=== PATIENT | female | born 1955 | race Caucasian/White ===

== ENCOUNTER 2019-07-17 06:21 | Inpatient (IN) | payer BC ==
[~2019-07-17] VITALS: Ht 162.6 cm; Wt 63.5 kg
[2019-07-17] MEDS ORDERED: PIPERACILLIN/TAZ 3.375G PREMIX 50 ML IV ONE (06:30)
[2019-07-17] MEDS ORDERED: VANCOMYCIN 1 G PREMIX 200 ML IV ONE (06:30)
[2019-07-17] MEDS ORDERED: SODIUM CHLORIDE 0.9% 1000ML BAG (SEPSIS BOLUS) IV ONE (06:30)
[2019-07-17 07:14] LABS: BASOPHILS % 0.3 % (0.0-2.0); EOSINOPHILS % 0.1 % (0.0-5.0); HEMATOCRIT. 35.1 % (36.0-48.0); HEMOGLOBIN. 11.7 g/dL (12.0-16.0); LYMPHOCYTES % 10.9 % (20.0-50.0); MEAN CORPUSCULAR HEMOGLOBIN 29.1 pg (28.0-32.0); MEAN CORPUSCULAR VOLUME 87.1 fL (81.0-99.0); MEAN PLATELET VOLUME 10.7 fl (7.4-10.4); MONOCYTES % 8.2 % (2.0-8.0); NEUTROPHILS % 80.5 % (40.0-76.0); PLATELET 97 x1000/uL (130-400); RED BLOOD CELL COUNT 4.04 mill/uL (4.2-5.4); RED CELL DISTRIBUTION WIDTH 14.4 % (11.6-14.6)
[2019-07-17 07:16] LABS: INR 1.1; PROTHROMBIN TIME 10.8 sec (9.6-11.0)
[2019-07-17 07:18] LABS: CHLORIDE 106 mEq/L (98-107)
[2019-07-17 08:18] LABS: CLARITY URINE CLOUDY (CLEAR); COLOR URINE DARK YELLOW (YELLOW); KETONES URINE TRACE (NEGATIVE); LEUKOCYTE ESTERASE URINE NEGATIVE (NEGATIVE); NITRITE URINE NEGATIVE (NEGATIVE); OCCULT BLOOD URINE NEGATIVE (NEGATIVE); PROTEIN URINE 1+ (NEGATIVE); SPECIFIC GRAVITY URINE 1.018 (1.005-1.030); UROBILINOGEN URINE 0.2 E.U./dL (0.2-1.0)
[2019-07-17] MEDS ORDERED: ONDANSETRON HCL 4MG/2ML INJ IV STA (08:18)
[2019-07-17] MEDS ORDERED: NOREPINEPHRINE 4MG/250ML PMX 250 ML IV ONE (10:00)
[2019-07-17] MEDS ORDERED: HYDROCORTISONE SOD SUCCINATE 100 MG/2 ML VIAL IV ONE (11:45)
[2019-07-17] MEDS ORDERED: DOCUSATE SODIUM 100MG CAPSULE PO PRN (16:15)
[2019-07-17] MEDS ORDERED: ONDANSETRON HCL 4MG/2ML INJ IV PRN (16:15)
[2019-07-17] MEDS ORDERED: CLONIDINE 0.1MG TABLET PO PRN (16:15)
[2019-07-17] MEDS ORDERED: ACETAMINOPHEN 325MG TABLET PO PRN (16:15)
[2019-07-17] MEDS ORDERED: IPRATROPIUM/ALBUTEROL 0.5-3(2.5)MG/3ML NEB HHN PRN (16:15)
[2019-07-17] MEDS ORDERED: LORAZEPAM 0.5MG TABLET PO PRN (16:15)
[2019-07-17] MEDS ORDERED: GUAIFENESIN 200MG/10ML SUGAR FREE UDC PO PRN (16:15)
[2019-07-17 17:28] LABS: HEPATITIS B SURFACE ANTIGEN NEGATIVE
[2019-07-17] MEDS ORDERED: HYDROMORPHONE HCL/PF 2MG/ML CPJ IV NR ×2 (17:30→21:15)
[2019-07-17] MEDS: SODIUM CHLORIDE 0.9% 1,000 ML IV SCH (17:30)
[2019-07-17 17:58] LABS: HEPATITIS A AB IGM NEGATIVE (NEGATIVE)
[2019-07-17] MEDS: HYDROMORPHONE HCL/PF 2MG/ML CPJ IV PRN ×2 (23:45→23:49)
[2019-07-18] VITALS (77 sets, daily range): BP systolic 81–145; BP diastolic 35–91
[2019-07-18] MEDS ORDERED: NOREPINEPHRINE 4 MG in DEXT 5% WATER 246 ML IV PRN (01:00)
[2019-07-18] MEDS: SODIUM CHLORIDE 0.9% 1,000 ML IV SCH ×2 (01:43→11:31)
[2019-07-18] MEDS: HYDROMORPHONE HCL/PF 2MG/ML CPJ IV PRN ×2 (01:58→06:43)
[2019-07-18] MEDS ORDERED: LABE100T5 PO (03:55)
[2019-07-18] MEDS ORDERED: LEVO50TA8 PO (03:55)
[2019-07-18] MEDS ORDERED: AMIT25TA9 PO (03:55)
[2019-07-18] MEDS ORDERED: PRED5TAB PO (03:55)
[2019-07-18] MEDS ORDERED: VALG450T3 PO (03:55)
[2019-07-18] MEDS ORDERED: FLUC200T51 PO (03:55)
[2019-07-18] MEDS ORDERED: ENOX60DI7 SQ (03:55)
[2019-07-18] MEDS ORDERED: MORP30TA66 PO (03:55)
[2019-07-18] MEDS ORDERED: AMLO1CAP6 MT (03:56)
[2019-07-18 05:48] LABS: BASOPHILS % 0.3 % (0.0-2.0); EOSINOPHILS % 0.8 % (0.0-5.0); HEMATOCRIT. 25.2 % (36.0-48.0); HEMOGLOBIN. 8.3 g/dL (12.0-16.0); MEAN CORPUSCULAR HEMOGLOBIN 29.1 pg (28.0-32.0); MEAN PLATELET VOLUME 9.4 fl (7.4-10.4); MONOCYTES % 10.7 % (2.0-8.0); NEUTROPHILS % 75.2 % (40.0-76.0); RED BLOOD CELL COUNT 2.87 mill/uL (4.2-5.4); RED CELL DISTRIBUTION WIDTH 14.4 % (11.6-14.6)
[2019-07-18 06:11] LABS: PHOSPHORUS 2.8 mg/dL (2.5-4.9)
[2019-07-18 06:29] LABS: PLATELET 46 x1000/uL (130-400)
[2019-07-18 08:35] LABS: PLATELET ESTIMATE DECREASED
[2019-07-18] MEDS: PREDNISONE 5MG TABLET PO SCH (10:01)
[2019-07-18] MEDS: MORPHINE SULFATE 30MG TABLET SR PO SCH ×2 (10:01→20:44)
[2019-07-18] MEDS: LEVOTHYROXINE SODIUM 50MCG TABLET PO SCH (10:01)
[2019-07-18] MEDS: LABETALOL HCL 200MG TABLET PO SCH (10:02)
[2019-07-18] MEDS: HYDROCODONE/ACETAMINOPHEN 5/325MG TABLET PO PRN ×2 (11:32→16:22)
[2019-07-18] MEDS ORDERED: FLUCONAZOLE 400MG/200ML BAG 200 ML IV SCH (17:00)
[2019-07-18] MEDS: VALGANCICLOVIR HYDROCHLORIDE 450MG TABLET PO SCH (17:37)
[2019-07-18] MEDS ORDERED: AMITRIPTYLINE 25MG TABLET PO SCH (21:00)
[2019-07-19] VITALS (9 sets, daily range): BP systolic 104–156; BP diastolic 36–86
[2019-07-19] MEDS: SODIUM CHLORIDE 0.9% 1,000 ML IV SCH ×2 (02:30→08:27)
[2019-07-19 05:10] LABS: HIV SCREEN 4G Non Reactive (Non Reactive)
[2019-07-19 07:46] LABS: BASOPHILS % 0.3 % (0.0-2.0); EOSINOPHILS % 0.7 % (0.0-5.0); HEMOGLOBIN. 8.3 g/dL (12.0-16.0); LYMPHOCYTES % 10.2 % (20.0-50.0); MEAN CORPUSCULAR HEMOGLOBIN 29.1 pg (28.0-32.0); MEAN CORPUSCULAR VOLUME 88.2 fL (81.0-99.0); MEAN PLATELET VOLUME 9.9 fl (7.4-10.4); NEUTROPHILS % 80.8 % (40.0-76.0); RED BLOOD CELL COUNT 2.84 mill/uL (4.2-5.4); RED CELL DISTRIBUTION WIDTH 14.3 % (11.6-14.6)
[2019-07-19 08:02] LABS: PLATELET 42 x1000/uL (130-400)
[2019-07-19] MEDS: LEVOTHYROXINE SODIUM 50MCG TABLET PO SCH (08:24)
[2019-07-19] MEDS: VALGANCICLOVIR HYDROCHLORIDE 450MG TABLET PO SCH (08:24)
[2019-07-19] MEDS: PREDNISONE 5MG TABLET PO SCH (08:24)
[2019-07-19] MEDS: MORPHINE SULFATE 30MG TABLET SR PO SCH (08:25)
[2019-07-19] MEDS: LABETALOL HCL 200MG TABLET PO SCH (10:26)
== END 2019-07-19 17:15 | disposition home or self-care (01) | DRG 871 ==
LOC: ER 06:21 → EDBEDREQTM 06:34 → EDBEDREQSVC 06:34 → EDBEDREQ 06:34 → MICUSO 09:49 → EDBEDREQ 09:56 → EDBEDREQSVC 09:56 → EDBEDREQTM 19:34 → ENRESERV 23:32 → 5EST 07-18 21:40
PROVIDERS: ADMIT Internal Medicine; ATTEND Internal Medicine
DX: A41.9 Sepsis, unspecified organism (principal); R65.21 Severe sepsis with septic shock; N17.0 Acute kidney failure with tubular necrosis; G92 Toxic encephalopathy; E44.0 Moderate protein-calorie malnutrition; D61.818 Other pancytopenia; E87.2 Acidosis; B01.9 Varicella without complication; B25.9 Cytomegaloviral disease, unspecified; K56.7 Ileus, unspecified; E03.9 Hypothyroidism, unspecified; G93.89 Other specified disorders of brain; D64.9 Anemia, unspecified; D72.821 Monocytosis (symptomatic); N18.9 Chronic kidney disease, unspecified; M32.14 Glomerular disease in systemic lupus erythematosus; R80.9 Proteinuria, unspecified; G62.9 Polyneuropathy, unspecified; R74.0 Nonspecific elevation of levels of transaminase and lactic acid dehydrogenase [LDH]; K52.9 Noninfective gastroenteritis and colitis, unspecified; Z79.52 Long term (current) use of systemic steroids; Z86.73 Personal history of transient ischemic attack (TIA), and cerebral infarction without residual deficits; Z68.24 Body mass index [BMI] 24.0-24.9, adult
CPT/HCPCS: 36415; 36556; 71045; 74176; 80048; 80053; 80076; 81003; 82270; 82728; 83540; 83550; 83605; 83735; 84100; 84145; 84484; 85025; 85049; 86705; 86709; 86803; 87015; 87045; 87340; 87389; 87427; 87449; 87493; 87899; 89055; 93005; 99291; J1170; J1450; J1720; J2405; J2543; J3370; J3490; J7030; J7512

== ENCOUNTER 2020-02-11 14:10 | Inpatient (IN) | payer BC ==
[~2020-02-11] VITALS: Ht 160 cm; Wt 63.0 kg
[~2020-02-11 14:10] MED LIST: AMIT25TA9 PO; AMLO1CAP6 MT; ENOX60DI7 SQ; FLUC200T51 PO; LABE100T5 PO; LEVO50TA8 PO; MORP30TA66 PO; PRED5TAB PO; VALG450T3 PO
[2020-02-11] MEDS ORDERED: SODIUM CHLORIDE 0.9% 1000ML BAG (SEPSIS BOLUS) IV ONE (14:15)
[2020-02-11] MEDS ORDERED: VANCOMYCIN 1 G PREMIX 200 ML IV SCH (14:30)
[2020-02-11] MEDS ORDERED: HYDROCORTISONE SOD SUCCINATE 100 MG/2 ML VIAL IV ONE (14:30)
[2020-02-11] MEDS ORDERED: PIPERACILLIN/TAZ 2.25G PREMIX 50 ML IV ONE (14:30)
[2020-02-11 14:42] LABS: BASOPHILS % 0.2 % (0.0-2.0); EOSINOPHILS % 0.2 % (0.0-5.0); HEMATOCRIT. 43.8 % (36.0-48.0); HEMOGLOBIN. 14.5 g/dL (12.0-16.0); LYMPHOCYTES % 22.7 % (20.0-50.0); MEAN CORPUSCULAR HEMOGLOBIN 29.9 pg (28.0-32.0); MEAN CORPUSCULAR VOLUME 90.4 fL (81.0-99.0); MEAN PLATELET VOLUME 9.1 fl (7.4-10.4); MONOCYTES % 6.7 % (2.0-8.0); NEUTROPHILS % 70.2 % (40.0-76.0); PLATELET 110 x1000/uL (130-400); RED BLOOD CELL COUNT 4.85 mill/uL (4.2-5.4); RED CELL DISTRIBUTION WIDTH 14.6 % (11.6-14.6)
[2020-02-11 14:48] LABS: CHLORIDE 102 mEq/L (98-107)
[2020-02-11 14:49] LABS: COLOR URINE YELLOW (YELLOW); KETONES URINE TRACE (NEGATIVE); LEUKOCYTE ESTERASE URINE NEGATIVE (NEGATIVE); NITRITE URINE NEGATIVE (NEGATIVE); OCCULT BLOOD URINE NEGATIVE (NEGATIVE); PROTEIN URINE 1+ (NEGATIVE); SPECIFIC GRAVITY URINE 1.023 (1.005-1.030); UROBILINOGEN URINE 0.2 E.U./dL (0.2-1.0)
[2020-02-11 14:51] LABS: INR 1.1; PROTHROMBIN TIME 11.6 sec (9.6-11.0)
[2020-02-11 14:53] LABS: CLARITY URINE SL HAZY (CLEAR)
[2020-02-11 14:58] LABS: CREATINE KINASE 80 IU/L (26-192)
[2020-02-11 15:05] LABS: BG BASE EXCESS -1.3 mmol/L (-2.0-2.0); BG CARBOXYHEMOGLOBIN 0.7 % (0.5-1.5); BG DEOXYHEMOGLOBIN 8.7 % (0.0-5.0); BG FRACTION INSPIRED OXYGEN 21; BG HCO3 ACT 22.7 mmol/L (22.0-26.0); BG METHEMOGLOBIN 0.3 % (0.0-1.5); BG OXYGEN SATURATION 91.2 % (92.0-98.5); BG OXYHEMOGLOBIN 90.3 % (94.0-97.0); BG PCO2 36.2 mmHg (35.0-45.0); BG PH 7.416 (7.350-7.450); BG PO2 62.6 mmHg (75.0-100.0); BG SAMPLE SITE RIGHT RADIAL; BG TOTAL HEMOGLOBIN 13.2 g/dL (12.0-18.0); BG VENT MODE ROOM AIR
[2020-02-11 15:23] LABS: HCG SCREEN NEGATIVE
[2020-02-11] MEDS ORDERED: NOREPINEPHRINE 4 MG in DEXT 5% WATER 246 ML IV ONE (16:30)
[2020-02-11] MEDS ORDERED: NOREPINEPHRINE 4MG/250ML PMX 250 ML IV ONE (17:00)
[2020-02-11] MEDS ORDERED: ACETAMINOPHEN 650MG SUPP ONE (20:09)
[2020-02-11] MEDS ORDERED: ONDANSETRON HCL 4MG/2ML INJ IV PRN (20:30)
[2020-02-11] MEDS ORDERED: ACETAMINOPHEN 650MG/20.3ML UDC GT PRN ×2 (20:30)
[2020-02-11] MEDS ORDERED: NOREPINEPHRINE 4 MG in DEXT 5% WATER 246 ML IV PRN ×2 (20:30→22:45)
[2020-02-11] MEDS ORDERED: METHYLPREDNISOLONE SOD SUCC 40 MG/ML VIAL IV NR (21:00)
[2020-02-11] MEDS ORDERED: LEVOFLOXACIN 500MG PREMIX 100 ML IV SCH (21:00)
[2020-02-11] MEDS ORDERED: SODIUM CHLORIDE 0.9% 500 ML IV ONE (21:00)
[2020-02-11] MEDS: SODIUM CHLORIDE 0.9% 1,000 ML IV SCH (21:10)
[2020-02-11] MEDS: FAMOTIDINE 20MG/2ML VIAL IV SCH (21:46)
[2020-02-11] MEDS ORDERED: FLUCONAZOLE 200 MG/100ML BAG 100 ML IV SCH (22:00)
[2020-02-12] VITALS (77 sets, daily range): BP systolic 55–153; BP diastolic 19–102
[2020-02-12] MEDS ORDERED: NOREPINEPHRINE 16 MG in DEXT 5% WATER 234 ML IV PRN (03:00)
[2020-02-12] MEDS: ACETAMINOPHEN 325MG TABLET PO PRN (03:45)
[2020-02-12] MEDS: SODIUM CHLORIDE 0.9% 1,000 ML IV SCH ×4 (03:46→22:55)
[2020-02-12] MEDS: HYDROCODONE/APAP 7.5/325MG 1 TAB TABLET PO PRN ×2 (06:06→10:27)
[2020-02-12 06:09] LABS: HEMATOCRIT. 35.6 % (36.0-48.0); MEAN CORPUSCULAR HEMOGLOBIN 29.9 pg (28.0-32.0); MEAN CORPUSCULAR VOLUME 89.1 fL (81.0-99.0); MEAN PLATELET VOLUME 8.8 fl (7.4-10.4); PLATELET 94 x1000/uL (130-400); RED BLOOD CELL COUNT 3.99 mill/uL (4.2-5.4); RED CELL DISTRIBUTION WIDTH 13.9 % (11.6-14.6)
[2020-02-12 06:10] LABS: CHLORIDE 111 mEq/L (98-107)
[2020-02-12 06:15] LABS: PHOSPHORUS 3.5 mg/dL (2.5-4.9)
[2020-02-12] MEDS: FAMOTIDINE 20MG/2ML VIAL IV SCH (06:57)
[2020-02-12 10:26] LABS: PLATELET ESTIMATE DECREASED
[2020-02-12] MEDS: AZITHROMYCIN 500 MG TABLET PO SCH (15:35)
[2020-02-12] MEDS ORDERED: HYDROCORTISONE SOD SUCCINATE 100 MG/2 ML VIAL IV NR (16:00)
[2020-02-12] MEDS ORDERED: MAGNESIUM 2 G PREMIX 50 ML IV SCH (16:00)
[2020-02-12] MEDS ORDERED: HYDR-3847 PO (16:59)
[2020-02-12] MEDS ORDERED: MYCO360T PO (16:59)
[2020-02-12] MEDS: CEFTRIAXONE 1,000 MG in DEXTROSE 5% WATER 50 ML IV SCH (17:27)
[2020-02-12] MEDS: METRONIDAZOLE 500 MG PREMIX 100 ML IV SCH (17:27)
[2020-02-12] MEDS: ENOXAPARIN 60MG/0.6ML SYR SUBCUT SCH (17:32)
[2020-02-12] MEDS ORDERED: LEVOFLOXACIN 250MG PREMIX 50 ML IV SCH (21:00)
[2020-02-12] MEDS: MORPHINE SULFATE 2 MG/ML CPJ (NOT FOR IM USE) IV PRN (21:26)
[2020-02-12] MEDS: FLUCONAZOLE 200 MG/100ML BAG 100 ML IV SCH (22:55)
[2020-02-13] VITALS (14 sets, daily range): BP systolic 114–152; BP diastolic 62–92
[2020-02-13] MEDS: METRONIDAZOLE 500 MG PREMIX 100 ML IV SCH ×3 (01:11→20:04)
[2020-02-13] MEDS: SODIUM CHLORIDE 0.9% 1,000 ML IV SCH ×2 (05:54→09:54)
[2020-02-13] MEDS: MORPHINE SULFATE 2 MG/ML CPJ (NOT FOR IM USE) IV PRN ×2 (06:01→20:05)
[2020-02-13 06:17] LABS: HEMATOCRIT. 30.8 % (36.0-48.0); HEMOGLOBIN. 10.4 g/dL (12.0-16.0); MEAN CORPUSCULAR HEMOGLOBIN 30.1 pg (28.0-32.0); MEAN CORPUSCULAR VOLUME 88.7 fL (81.0-99.0); MEAN PLATELET VOLUME 9.2 fl (7.4-10.4); PLATELET 60 x1000/uL (130-400); RED BLOOD CELL COUNT 3.47 mill/uL (4.2-5.4); RED CELL DISTRIBUTION WIDTH 13.8 % (11.6-14.6)
[2020-02-13] MEDS: FAMOTIDINE 20MG/2ML VIAL IV SCH (09:45)
[2020-02-13] MEDS: AZITHROMYCIN 500 MG TABLET PO SCH (09:45)
[2020-02-13 13:29] LABS: PLATELET ESTIMATE DECREASED
[2020-02-13] MEDS ORDERED: HYDROCORTISONE SOD SUCCINATE 100 MG/2 ML VIAL IV SCH (15:00)
[2020-02-13] MEDS: ENOXAPARIN 60MG/0.6ML SYR SUBCUT SCH (18:13)
[2020-02-13] MEDS: CEFTRIAXONE 1,000 MG in DEXTROSE 5% WATER 50 ML IV SCH (18:13)
[2020-02-14] VITALS (11 sets, daily range): BP systolic 128–163; BP diastolic 74–128
[2020-02-14] MEDS: FLUCONAZOLE 200 MG/100ML BAG 100 ML IV SCH (00:19)
[2020-02-14] MEDS: SODIUM CHLORIDE 0.9% 1,000 ML IV SCH (02:37)
[2020-02-14] MEDS: METRONIDAZOLE 500 MG PREMIX 100 ML IV SCH ×2 (03:37→10:02)
[2020-02-14] MEDS: ACETAMINOPHEN 325MG TABLET PO PRN (06:52)
[2020-02-14 07:53] LABS: BASOPHILS % 0.2 % (0.0-2.0); EOSINOPHILS % 0.1 % (0.0-5.0); HEMATOCRIT. 33.6 % (36.0-48.0); HEMOGLOBIN. 11.4 g/dL (12.0-16.0); LYMPHOCYTES % 12.7 % (20.0-50.0); MEAN CORPUSCULAR VOLUME 88.3 fL (81.0-99.0); MEAN PLATELET VOLUME 9.9 fl (7.4-10.4); MONOCYTES % 7.5 % (2.0-8.0); NEUTROPHILS % 79.5 % (40.0-76.0); PLATELET 77 x1000/uL (130-400); RED BLOOD CELL COUNT 3.81 mill/uL (4.2-5.4); RED CELL DISTRIBUTION WIDTH 13.8 % (11.6-14.6)
[2020-02-14] MEDS ORDERED: AMLODIPINE 2.5MG TABLET PO SCH (09:00)
[2020-02-14] MEDS: AZITHROMYCIN 500 MG TABLET PO SCH (09:22)
[2020-02-14] MEDS: FAMOTIDINE 20MG/2ML VIAL IV SCH (09:23)
[2020-02-14] MEDS ORDERED: POTASSIUM CHLORIDE 20MEQ TABLET SR PO NR (09:45)
[2020-02-14] MEDS ORDERED: HYDROCODONE/ACETAMINOPHEN 10/325MG TABLET PO PRN (10:15)
[2020-02-14] MEDS ORDERED: CEFEPIME 1,000 MG in DEXTROSE 5% WATER 50 ML IV SCH (11:00)
[2020-02-14] MEDS ORDERED: HYDROCORTISONE SOD SUCCINATE 100 MG/2 ML VIAL IV NR (15:30)
== END 2020-02-14 17:30 | disposition short-term general hospital (02) | DRG 871 ==
LOC: ER 14:10 → EDBEDREQTM 14:25 → EDBEDREQ 14:25 → EDBEDREQSVC 14:25 → MICUSO 19:38 → EDBEDREQ 19:44 → EDBEDREQTM 19:44 → MICUNO 23:07 → CVICU 02-12 13:24 → 3WST 02-13 01:21
PROVIDERS: ADMIT Internal Medicine; ATTEND Internal Medicine
PROC: 06HM33Z Insertion of Infusion Device into Right Femoral Vein, Percutaneous Approach (ICD-10-PCS; principal; 2020-02-11)
DX: A41.9 Sepsis, unspecified organism (principal); J18.9 Pneumonia, unspecified organism; R65.21 Severe sepsis with septic shock; N17.0 Acute kidney failure with tubular necrosis; E27.40 Unspecified adrenocortical insufficiency; N39.0 Urinary tract infection, site not specified; D68.61 Antiphospholipid syndrome; B96.89 Other specified bacterial agents as the cause of diseases classified elsewhere; D69.6 Thrombocytopenia, unspecified; K52.9 Noninfective gastroenteritis and colitis, unspecified; M32.9 Systemic lupus erythematosus, unspecified; I10 Essential (primary) hypertension; D64.9 Anemia, unspecified; E86.0 Dehydration; B96.20 Unspecified Escherichia coli [E. coli] as the cause of diseases classified elsewhere; Z20.828 Contact with and (suspected) exposure to other viral communicable diseases; Z79.890 Hormone replacement therapy; Z79.899 Other long term (current) drug therapy
CPT/HCPCS: 36415; 36600; 71045; 74176; 76770; 80048; 80053; 81003; 82270; 82375; 82550; 82805; 83605; 83615; 83735; 84100; 84145; 84443; 84484; 84703; 85025; 86850; 86900; 87015; 87045; 87077; 87186; 87427; 87449; 87493; 87635; 89055; 93005; 93970; 96365; 99291; J0692; J0696; J1450; J1650; J1720; J1956; J2270; J2543; J2920; J3370; J3475; J3490; J7030; J7040; J7060

== ENCOUNTER 2021-06-24 22:21 | Inpatient (IN) | payer BC ==
[~2021-06-24] VITALS: Ht 152.4 cm; Wt 75.3 kg
[~2021-06-24 22:21] MED LIST changes: -AMIT25TA9 PO; -FLUC200T51 PO; +HYDR-4379 PO; -LABE100T5 PO; +MYCO360T PO; -PRED5TAB PO; -VALG450T3 PO
[2021-06-24] MEDS ORDERED: SODIUM CHLORIDE 0.9% 1000ML BAG (SEPSIS BOLUS) IV ONE ×2 (22:30→23:30)
[2021-06-24 23:00] LABS: BASOPHILS % 0.3 % (0.0-2.0); EOSINOPHILS % 0.2 % (0.0-5.0); HEMATOCRIT. 43.6 % (36.0-48.0); HEMOGLOBIN. 14.4 g/dL (12.0-16.0); MEAN CORPUSCULAR HEMOGLOBIN 29.3 pg (28.0-32.0); MEAN CORPUSCULAR VOLUME 88.3 fL (81.0-99.0); MEAN PLATELET VOLUME 10.1 fl (7.4-10.4); NEUTROPHILS % 66.5 % (40.0-76.0); PLATELET 107 x1000/uL (130-400); RED BLOOD CELL COUNT 4.93 mill/uL (4.2-5.4); RED CELL DISTRIBUTION WIDTH 16.3 % (11.6-14.6)
[2021-06-24] MEDS ORDERED: LORAZEPAM 2MG/ML CPJ IV ONE (23:00)
[2021-06-24 23:07] LABS: CHLORIDE 104 mEq/L (98-107)
[2021-06-24] MEDS ORDERED: DEXTROSE 50% WATER 50ML SYRINGE IV NR (23:30)
[2021-06-24] MEDS ORDERED: CALCIUM CHLORIDE 1GM/10ML SYR IV NR (23:30)
[2021-06-24] MEDS ORDERED: VANCOMYCIN 1 G PREMIX 200 ML IV NR (23:30)
[2021-06-24] MEDS ORDERED: HYDROCORTISONE SOD SUCCINATE 100 MG/2 ML VIAL IV ONE (23:30)
[2021-06-24] MEDS ORDERED: PIPERACILLIN/TAZ 3.375G PREMIX 50 ML IV NR (23:30)
[2021-06-24] MEDS ORDERED: INSULIN REGULAR (HUMULIN R) 300UNITS/3ML VIAL IV NR (23:30)
[2021-06-24] MEDS ORDERED: SODIUM POLYSTYRENE SULFONATE 15 G/60 ML BOT PO NR (23:30)
[2021-06-25] VITALS (9 sets, daily range): BP systolic 77–116; BP diastolic 48–88
[2021-06-25 00:01] LABS: CLARITY URINE CLOUDY (CLEAR); COLOR URINE DARK YELLOW (YELLOW); KETONES URINE TRACE (NEGATIVE); LEUKOCYTE ESTERASE URINE TRACE (NEGATIVE); NITRITE URINE NEGATIVE (NEGATIVE); OCCULT BLOOD URINE NEGATIVE (NEGATIVE); PROTEIN URINE 1+ (NEGATIVE); SPECIFIC GRAVITY URINE 1.027 (1.005-1.030); UROBILINOGEN URINE 0.2 E.U./dL (0.2-1.0)
[2021-06-25] MEDS ORDERED: SODIUM CHLORIDE 0.9% 1,000 ML IV ONE (01:45)
[2021-06-25] MEDS ORDERED: NOREPINEPHRINE 8 MG in DEXT 5% WATER 242 ML IV PRN (02:30)
[2021-06-25] MEDS ORDERED: ACETAMINOPHEN 325MG TABLET PO PRN (03:45)
[2021-06-25] MEDS ORDERED: SODIUM BICARBONATE 8.4% 1 MEQ/ML 50ML SYR IV ONE (08:45)
[2021-06-25] MEDS ORDERED: CALCIUM CHLORIDE 1GM/10ML SYR IV ONE (08:45)
[2021-06-25] MEDS ORDERED: DEXTROSE 50% WATER 50ML SYRINGE IV ONE (08:45)
[2021-06-25] MEDS ORDERED: SODIUM POLYSTYRENE SULFONATE 15 G/60 ML BOT PO ONE (08:45)
[2021-06-25] MEDS ORDERED: INSULIN REGULAR (HUMULIN R) 300UNITS/3ML VIAL IV ONE (08:45)
[2021-06-25] MEDS ORDERED: ALBUTEROL (0.083%) 2.5MG/3ML NEB HHN ONE (08:45)
[2021-06-25] MEDS ORDERED: SODIUM BICARBONATE 8.4% 1 MEQ/ML 50ML SYR IV NR (09:00)
[2021-06-25] MEDS ORDERED: PIPERACILLIN/TAZ 3.375G PREMIX 50 ML IV SCH (09:00)
[2021-06-25] MEDS ORDERED: ENOXAPARIN 30MG/0.3ML SYR SUBCUT SCH (09:00)
[2021-06-25] MEDS: ASPIRIN 81MG TABLET PO SCH (09:00)
[2021-06-25] MEDS ORDERED: SODIUM BICARBONATE 100 MEQ in DEXTROSE 5% WATER 1,000 ML IV SCH (10:30)
[2021-06-25 10:36] LABS: BG BASE EXCESS -8.5 mmol/L (-2.0-2.0); BG CARBOXYHEMOGLOBIN 0.2 % (0.5-1.5); BG DEOXYHEMOGLOBIN 3.7 % (0.0-5.0); BG FRACTION INSPIRED OXYGEN 28; BG HCO3 ACT 16.2 mmol/L (22.0-26.0); BG METHEMOGLOBIN 0.1 % (0.0-1.5); BG OXYGEN SATURATION 96.3 % (92.0-98.5); BG PCO2 31.4 mmHg (35.0-45.0); BG PH 7.331 (7.350-7.450); BG PO2 95.4 mmHg (75.0-100.0); BG SAMPLE SITE RIGHT BRACHIAL; BG TOTAL HEMOGLOBIN 13.1 g/dL (12.0-18.0); BG VENT MODE NASAL CANNULA
[2021-06-25] MEDS ORDERED: ENOXAPARIN 60MG/0.6ML SYR SUBCUT SCH (13:00)
[2021-06-25] MEDS: HYDROCORTISONE SOD SUCCINATE 100 MG/2 ML VIAL IV SCH ×2 (14:32→18:35)
[2021-06-25] MEDS ORDERED: VANCOMYCIN 500 MG PREMIX 100 ML IV NR (15:00)
[2021-06-25 16:58] LABS: CREATINE KINASE MB FRACTION 33.2 ng/mL (0.5-3.6)
[2021-06-25] MEDS ORDERED: SODIUM CHLORIDE 0.9% 250 ML IV PRN (20:30)
[2021-06-25] MEDS ORDERED: SODIUM CHLORIDE 0.9% 250 ML IV ONE ×2 (20:30→22:30)
[2021-06-25] MEDS: ATORVASTATIN CALCIUM 40MG TABLET PO SCH (20:48)
[2021-06-25] MEDS: PIPERACILLIN/TAZOBACTAM 3.375 G in DEXTROSE 5% WATER 50 ML IV SCH (20:49)
[2021-06-25] MEDS: DEXT 5%/0.45% NACL 1000ML 1,000 ML IV SCH (22:26)
[2021-06-25 23:44] LABS: CREATINE KINASE MB FRACTION 15.9 ng/mL (0.5-3.6)
[2021-06-26] VITALS (13 sets, daily range): BP systolic 100–150; BP diastolic 58–85
[2021-06-26] MEDS: HYDROCORTISONE SOD SUCCINATE 100 MG/2 ML VIAL IV SCH ×4 (00:14→18:25)
[2021-06-26 06:04] LABS: HEMATOCRIT. 32.8 % (36.0-48.0); HEMOGLOBIN. 11.1 g/dL (12.0-16.0); MEAN CORPUSCULAR HEMOGLOBIN 29.6 pg (28.0-32.0); MEAN CORPUSCULAR VOLUME 87.7 fL (81.0-99.0); MEAN PLATELET VOLUME 9.8 fl (7.4-10.4); PLATELET 64 x1000/uL (130-400); RED BLOOD CELL COUNT 3.75 mill/uL (4.2-5.4); RED CELL DISTRIBUTION WIDTH 16.3 % (11.6-14.6)
[2021-06-26 06:29] LABS: INR 1.3
[2021-06-26 07:43] LABS: CHLORIDE 115 mEq/L (98-107)
[2021-06-26 07:52] LABS: AMYLASE 27 IU/L (25-115)
[2021-06-26 08:00] LABS: PHOSPHORUS 4.2 mg/dL (2.5-4.9)
[2021-06-26 08:02] LABS: CREATINE KINASE 716 IU/L (26-192); CREATINE KINASE MB FRACTION 12.5 ng/mL (0.5-3.6)
[2021-06-26] MEDS: PIPERACILLIN/TAZOBACTAM 3.375 G in DEXTROSE 5% WATER 50 ML IV SCH ×2 (08:46→20:37)
[2021-06-26] MEDS: DEXT 5%/0.45% NACL 1000ML 1,000 ML IV SCH ×2 (08:46→17:25)
[2021-06-26] MEDS: ASPIRIN 81MG TABLET PO SCH (08:47)
[2021-06-26] MEDS ORDERED: DIATR MEGLU/DIATRIZOATE SOLN 120ML ONE (10:46)
[2021-06-26] MEDS ORDERED: MORPHINE SULFATE 2 MG/ML CPJ (NOT FOR IM USE) IV PRN (11:15)
[2021-06-26] MEDS ORDERED: NALOXONE HCL 0.4MG/ML VIAL IV PRN (11:15)
[2021-06-26] MEDS ORDERED: VANCOMYCIN 750 MG PREMIX 150 ML IV SCH (12:00)
[2021-06-26 13:30] LABS: PLATELET ESTIMATE DECREASED
[2021-06-26] MEDS: ONDANSETRON HCL 4MG/2ML INJ IV PRN ×2 (14:29→20:37)
[2021-06-26] MEDS: FLUCONAZOLE 100MG/50ML in BAG IV SCH (18:25)
[2021-06-26] MEDS: ATORVASTATIN CALCIUM 40MG TABLET PO SCH (20:37)
[2021-06-27] VITALS (13 sets, daily range): BP systolic 126–170; BP diastolic 63–93
[2021-06-27] MEDS: HYDROCORTISONE SOD SUCCINATE 100 MG/2 ML VIAL IV SCH (00:37)
[2021-06-27] MEDS: DEXT 5%/0.45% NACL 1000ML 1,000 ML IV SCH (00:38)
[2021-06-27] MEDS: MORPHINE SULFATE 2 MG/ML CPJ (NOT FOR IM USE) IV PRN ×4 (00:54→21:38)
[2021-06-27 06:37] LABS: HEMATOCRIT. 34.7 % (36.0-48.0); HEMOGLOBIN. 11.7 g/dL (12.0-16.0); MEAN CORPUSCULAR HEMOGLOBIN 29.7 pg (28.0-32.0); MEAN CORPUSCULAR VOLUME 87.7 fL (81.0-99.0); MEAN PLATELET VOLUME 10.4 fl (7.4-10.4); PLATELET 62 x1000/uL (130-400); RED BLOOD CELL COUNT 3.95 mill/uL (4.2-5.4); RED CELL DISTRIBUTION WIDTH 15.7 % (11.6-14.6)
[2021-06-27 08:11] LABS: ANTI-NUCLEAR ANTIBODIES DIRECT Positive (Negative)
[2021-06-27] MEDS: PIPERACILLIN/TAZOBACTAM 3.375 G in DEXTROSE 5% WATER 50 ML IV SCH ×2 (08:35→21:00)
[2021-06-27] MEDS: ONDANSETRON HCL 4MG/2ML INJ IV PRN ×2 (08:36→17:25)
[2021-06-27] MEDS ORDERED: POTASSIUM CHLORIDE 20MEQ TABLET SR PO SCH (08:45)
[2021-06-27] MEDS: DEXTROSE 5% WATER 1,000 ML IV SCH ×2 (09:58→21:00)
[2021-06-27 11:15] LABS: PLATELET ESTIMATE DECREASED
[2021-06-27] MEDS: HYDRALAZINE 20MG/ML VIAL IV SCH ×2 (11:42→17:25)
[2021-06-27] MEDS: FLUCONAZOLE 100MG/50ML in BAG IV SCH (17:24)
[2021-06-27] MEDS ORDERED: HYDROCORTISONE SOD SUCCINATE 100 MG/2 ML VIAL IV SCH (18:00)
[2021-06-27] MEDS: ATORVASTATIN CALCIUM 40MG TABLET PO SCH (21:00)
[2021-06-28] VITALS (9 sets, daily range): BP systolic 112–139; BP diastolic 59–86
[2021-06-28] MEDS: HYDRALAZINE 20MG/ML VIAL IV SCH ×4 (00:02→18:14)
[2021-06-28] MEDS: ONDANSETRON HCL 4MG/2ML INJ IV PRN ×2 (01:02→21:22)
[2021-06-28] MEDS: MORPHINE SULFATE 2 MG/ML CPJ (NOT FOR IM USE) IV PRN ×6 (01:31→23:37)
[2021-06-28] MEDS: METHYLPREDNISOLONE SOD SUCC 40 MG/ML VIAL IV SCH ×3 (05:28→18:14)
[2021-06-28 06:11] LABS: BASOPHILS % 0.3 % (0.0-2.0); EOSINOPHILS % 0.4 % (0.0-5.0); HEMOGLOBIN. 11.6 g/dL (12.0-16.0); LYMPHOCYTES % 13.8 % (20.0-50.0); MEAN CORPUSCULAR HEMOGLOBIN 29.7 pg (28.0-32.0); MEAN PLATELET VOLUME 10.2 fl (7.4-10.4); MONOCYTES % 8.8 % (2.0-8.0); NEUTROPHILS % 76.7 % (40.0-76.0); PLATELET 57 x1000/uL (130-400); RED BLOOD CELL COUNT 3.91 mill/uL (4.2-5.4); RED CELL DISTRIBUTION WIDTH 15.3 % (11.6-14.6)
[2021-06-28 06:22] LABS: D-DIMER 3.43 mg/L FEU (<0.50); INR 1.2; PARTIAL THROMBOPLASTIN TIME 41.4 sec (23.4-31.0); PROTHROMBIN TIME 12.3 sec (9.6-11.0)
[2021-06-28] MEDS: PIPERACILLIN/TAZOBACTAM 3.375 G in DEXTROSE 5% WATER 50 ML IV SCH ×2 (08:03→20:37)
[2021-06-28 08:04] LABS: PHOSPHORUS 1.8 mg/dL (2.5-4.9)
[2021-06-28 08:40] LABS: T4 FREE 1.19 ng/dL (0.76-1.46)
[2021-06-28] MEDS ORDERED: KCL 20MEQ/100ML PREMIX 100 ML IV NR ×2 (09:30→11:30)
[2021-06-28] MEDS: DEXT 5%/0.45% NACL 1000ML 1,000 ML IV SCH (09:45)
[2021-06-28] MEDS ORDERED: POTASSIUM PHOS,M-BASIC-D-BASIC 20 MMOL in DEXT 5% WATER 243.3333 ML IV NR (10:00)
[2021-06-28] MEDS: FLUCONAZOLE 100MG/50ML in BAG IV SCH (16:12)
[2021-06-28] MEDS: ATORVASTATIN CALCIUM 40MG TABLET PO SCH (20:37)
[2021-06-29] VITALS (11 sets, daily range): BP systolic 113–147; BP diastolic 67–81
[2021-06-29] MEDS: METHYLPREDNISOLONE SOD SUCC 40 MG/ML VIAL IV SCH ×4 (00:58→17:37)
[2021-06-29] MEDS: HYDRALAZINE 20MG/ML VIAL IV SCH ×4 (00:58→17:40)
[2021-06-29] MEDS: DEXT 5%/0.45% NACL 1000ML 1,000 ML IV SCH ×2 (01:53→17:36)
[2021-06-29] MEDS: MORPHINE SULFATE 2 MG/ML CPJ (NOT FOR IM USE) IV PRN ×4 (03:41→20:42)
[2021-06-29 10:08] LABS: G6PD RBC 3.87 x10E6/uL (3.77-5.28)
[2021-06-29] MEDS: PIPERACILLIN/TAZOBACTAM 3.375 G in DEXTROSE 5% WATER 50 ML IV SCH ×2 (10:52→20:48)
[2021-06-29 13:06] LABS: ANTI-DNA DOUBLE STRANDED QUANT 42 IU/mL (0-9); ANTI-JO 1 ABS <0.2 AI (0.0-0.9)
[2021-06-29 15:27] LABS: HEMATOCRIT. 36.7 % (36.0-48.0); HEMOGLOBIN. 11.9 g/dL (12.0-16.0); MEAN CORPUSCULAR HEMOGLOBIN 28.3 pg (28.0-32.0); MEAN CORPUSCULAR VOLUME 87.2 fL (81.0-99.0); MEAN PLATELET VOLUME 9.2 fl (7.4-10.4); PLATELET 64 x1000/uL (130-400); RED BLOOD CELL COUNT 4.21 mill/uL (4.2-5.4); RED CELL DISTRIBUTION WIDTH 15.4 % (11.6-14.6)
[2021-06-29 15:37] LABS: PHOSPHORUS 1.9 mg/dL (2.5-4.9)
[2021-06-29] MEDS: AMLODIPINE 2.5MG TABLET PO SCH (17:40)
[2021-06-29] MEDS: FLUCONAZOLE 100MG/50ML in BAG IV SCH (17:41)
[2021-06-29] MEDS: HEPARIN 5000 UNITS/ML VIAL SUBCUT SCH ×2 (18:33→20:43)
[2021-06-29] MEDS: ATORVASTATIN CALCIUM 40MG TABLET PO SCH (20:43)
[2021-06-30] VITALS (12 sets, daily range): BP systolic 125–154; BP diastolic 67–94
[2021-06-30] MEDS: MORPHINE SULFATE 2 MG/ML CPJ (NOT FOR IM USE) IV PRN ×6 (00:43→23:38)
[2021-06-30] MEDS: HYDRALAZINE 20MG/ML VIAL IV SCH ×5 (00:54→23:37)
[2021-06-30] MEDS: METHYLPREDNISOLONE SOD SUCC 40 MG/ML VIAL IV SCH ×5 (00:55→23:37)
[2021-06-30 06:51] LABS: HEMATOCRIT. 30.9 % (36.0-48.0); HEMOGLOBIN. 10.7 g/dL (12.0-16.0); MEAN CORPUSCULAR HEMOGLOBIN 29.8 pg (28.0-32.0); MEAN CORPUSCULAR VOLUME 86.3 fL (81.0-99.0); MEAN PLATELET VOLUME 11.1 fl (7.4-10.4); PLATELET 57 x1000/uL (130-400); RED BLOOD CELL COUNT 3.58 mill/uL (4.2-5.4); RED CELL DISTRIBUTION WIDTH 14.7 % (11.6-14.6)
[2021-06-30 09:06] LABS: IMMUNOGLOBULIN A 166 mg/dL (87-352); IMMUNOGLOBULIN G 862 mg/dL (586-1602); IMMUNOGLOBULIN M 23 mg/dL (26-217)
[2021-06-30] MEDS: AMLODIPINE 2.5MG TABLET PO SCH (09:51)
[2021-06-30] MEDS: HEPARIN 5000 UNITS/ML VIAL SUBCUT SCH ×2 (09:51→22:32)
[2021-06-30] MEDS: DEXT 5%/0.45% NACL 1000ML 1,000 ML IV SCH ×2 (10:50→22:47)
[2021-06-30 12:44] LABS: INR 1.2; PROTHROMBIN TIME 12.3 sec (9.6-11.0)
[2021-06-30] MEDS ORDERED: POTASSIUM PHOS,M-BASIC-D-BASIC 15 MMOL in DEXT 5% WATER 245 ML IV NR (13:00)
[2021-06-30] MEDS: GABAPENTIN 300MG CAPSULE PO SCH ×2 (14:36→22:32)
[2021-06-30 15:45] LABS: PLATELET ESTIMATE DECREASED
[2021-06-30] MEDS: FLUCONAZOLE 100MG TABLET PO SCH (18:10)
[2021-06-30] MEDS: DILTIAZEM HCL 30MG TABLET PO SCH (22:33)
[2021-06-30] MEDS: HYDROCODONE/ACETAMINOPHEN 5/325MG TABLET PO PRN (22:34)
[2021-06-30 23:45] LABS: PLATELET ESTIMATE DECREASED
[2021-07-01] VITALS (11 sets, daily range): BP systolic 101–167; BP diastolic 62–87
[2021-07-01] MEDS: HYDROCODONE/ACETAMINOPHEN 5/325MG TABLET PO PRN ×3 (02:32→16:17)
[2021-07-01] MEDS: HYDRALAZINE 20MG/ML VIAL IV SCH ×2 (05:00→12:30)
[2021-07-01] MEDS: MORPHINE SULFATE 2 MG/ML CPJ (NOT FOR IM USE) IV PRN ×3 (05:01→20:51)
[2021-07-01] MEDS: DILTIAZEM HCL 30MG TABLET PO SCH ×3 (05:10→23:06)
[2021-07-01] MEDS: GABAPENTIN 300MG CAPSULE PO SCH ×3 (05:10→23:05)
[2021-07-01] MEDS ORDERED: METHYLPREDNISOLONE SOD SUCC 40 MG/ML VIAL IV SCH (06:00)
[2021-07-01 07:34] LABS: HEMATOCRIT. 31.8 % (36.0-48.0); HEMOGLOBIN. 10.6 g/dL (12.0-16.0); MEAN CORPUSCULAR HEMOGLOBIN 28.9 pg (28.0-32.0); MEAN CORPUSCULAR VOLUME 86.9 fL (81.0-99.0); PLATELET 61 x1000/uL (130-400); RED BLOOD CELL COUNT 3.66 mill/uL (4.2-5.4); RED CELL DISTRIBUTION WIDTH 14.7 % (11.6-14.6)
[2021-07-01 07:42] LABS: CHLORIDE 105 mEq/L (98-107)
[2021-07-01 07:49] LABS: PHOSPHORUS 3.2 mg/dL (2.5-4.9)
[2021-07-01] MEDS: HYDROXYCHLOROQUINE SULFATE 200MG TABLET PO SCH ×2 (08:11→17:58)
[2021-07-01] MEDS: FOLIC ACID 1MG TABLET PO SCH (08:13)
[2021-07-01] MEDS: HEPARIN 5000 UNITS/ML VIAL SUBCUT SCH ×2 (08:14→23:05)
[2021-07-01] MEDS: DEXT 5%/0.45% NACL 1000ML 1,000 ML IV SCH ×2 (08:26→19:33)
[2021-07-01] MEDS ORDERED: METHOTREXATE SODIUM 2 . 5MG TABLET PO SCH ×4 (09:00→21:00)
[2021-07-01 10:06] LABS: ANA IFA Negative (.)
[2021-07-01] MEDS ORDERED: DEXTROSE 50% WATER 50ML SYRINGE IV PRN (12:15)
[2021-07-01] MEDS: PREDNISONE 20MG TABLET PO SCH ×2 (12:26→18:41)
[2021-07-01] MEDS: BLOOD SUGAR DIAGNOSTIC STRIP TEST SCH ×3 (12:30→20:58)
[2021-07-01] MEDS: INSULIN LISPRO 100 UNITS/ML SUBCUT SCH ×3 (15:22→23:06)
[2021-07-01] MEDS: FLUCONAZOLE 100MG TABLET PO SCH (17:58)
[2021-07-01 18:34] LABS: PLATELET ESTIMATE DECREASED
[2021-07-01] MEDS ORDERED: NALOXONE HCL 0.4 MG/ML 1ML VIAL IV PRN (20:30)
[2021-07-01] MEDS ORDERED: SERTRALINE HCL 50MG TABLET PO SCH (21:00)
[2021-07-01] MEDS: METHYLPREDNISOLONE SOD SUCC 40 MG/ML VIAL IV SCH (23:15)
[2021-07-02] VITALS: BP 153/78
[2021-07-02] MEDS: MORPHINE SULFATE 2 MG/ML CPJ (NOT FOR IM USE) IV PRN ×3 (01:12→15:01)
[2021-07-02 04:00] VITALS: BP 146/81
[2021-07-02] MEDS: GABAPENTIN 300MG CAPSULE PO SCH ×2 (04:59→13:23)
[2021-07-02] MEDS: HYDROCODONE/ACETAMINOPHEN 5/325MG TABLET PO PRN (04:59)
[2021-07-02] MEDS: DILTIAZEM HCL 30MG TABLET PO SCH ×2 (05:00→13:26)
[2021-07-02] MEDS: METHYLPREDNISOLONE SOD SUCC 40 MG/ML VIAL IV SCH ×2 (05:00→13:48)
[2021-07-02] MEDS: HYDRALAZINE 20MG/ML VIAL IV SCH ×2 (05:01)
[2021-07-02] MEDS: BLOOD SUGAR DIAGNOSTIC STRIP TEST SCH ×2 (07:30→12:30)
[2021-07-02 08:00] VITALS: BP 159/83
[2021-07-02] MEDS: DEXT 5%/0.45% NACL 1000ML 1,000 ML IV SCH (08:52)
[2021-07-02] MEDS: HYDROXYCHLOROQUINE SULFATE 200MG TABLET PO SCH (08:52)
[2021-07-02] MEDS: FOLIC ACID 1MG TABLET PO SCH (08:53)
[2021-07-02] MEDS: HEPARIN 5000 UNITS/ML VIAL SUBCUT SCH (08:53)
[2021-07-02 09:09] LABS: ALDOLASE 8.6 U/L (3.3-10.3); GLOMERULAR BASEMENT MEMB AB 4 units (0-20)
[2021-07-02] MEDS: INSULIN LISPRO 100 UNITS/ML SUBCUT SCH ×2 (09:11→13:47)
[2021-07-02 10:10] LABS: ACTIN (SMOOTH MUSCLE) ANTIBODY 6 Units (0-19); ANTI-PROTEINASE 3 ABS < 3.5 U/mL (0.0-3.5); VITAMIN D 1-25 DIHYDROXY 66.1 pg/mL (19.9-79.3)
[2021-07-02 12:00] VITALS: BP 164/86
[2021-07-02] MEDS ORDERED: METHYLPREDNISOLONE SOD SUCC 40 MG/ML VIAL ONE (13:20)
[2021-07-02 15:08] LABS: ANTI-CARDIOLIPIN AB IGA < 9 APL U/mL (0-11); ANTI-CARDIOLIPIN AB IGG < 9 GPL U/mL (0-14); ANTI-CARDIOLIPIN AB IGM < 9 MPL U/mL (0-12); G6PD QUANTITATIVE 284 (127-427)
[2021-07-02] MEDS ORDERED: METH2.5T PO ×3 (15:21)
[2021-07-02] MEDS ORDERED: DILT30TA38 PO (15:21)
[2021-07-02] MEDS ORDERED: P20 PO (15:21)
[2021-07-02] MEDS ORDERED: GABA-532 PO (15:21)
[2021-07-02] MEDS ORDERED: FOLI-43 PO (15:21)
[2021-07-02] MEDS ORDERED: FLUC100T PO (15:21)
[2021-07-02] MEDS ORDERED: METF-873 MT (15:21)
[2021-07-02] MEDS ORDERED: LISI-186 MT (15:21)
[2021-07-02] MEDS ORDERED: SERT50TA PO (15:21)
[2021-07-02] MEDS ORDERED: HYDR200T35 PO (15:21)
[2021-07-02 16:32] VITALS: BP 164/86
[2021-07-02 19:06] LABS: ANGIOTENSION CONVERTING ENZYME 14 U/L (14-82); HLA CLASS 1 ANTIBODY Negative (Negative); IIb/IIIa ANTIBODY Negative (Negative); Ia/IIa ANTIBODY Negative (Negative); Ib/IX ANTIBODY Negative (Negative)
[2021-07-03 09:09] LABS: ABSOLUTE LYMPHOCYTES 0.7 x10E3/uL (0.7-3.1); ABSOLUTE MONOCYTES 0.3 x10E3/uL (0.1-0.9); BASOPHILS 0 % (Not Estab.); HEMATOCRIT 31.3 % (34.0-46.6); HEMATOLOGY COMMENT Note: (.); LYMPHOCYTES 7 % (Not Estab.); MEAN CORPUSCULAR HEMOGLOBIN 28.9 pg (26.6-33.0); MEAN CORPUSCULAR HGB CONC. 31.9 g/dL (31.5-35.7); MEAN CORPUSCULAR VOLUME 91 fL (79-97); MONOCYTES 3 % (Not Estab.); NEUTROPHILS 89 % (Not Estab.); PLATELETS 73 x10E3/uL (150-450); RBC 3.46 x10E6/uL (3.77-5.28); RED CELL DISTRIBUTION WIDTH 14.2 % (11.7-15.4); WBC 10.1 x10E3/uL (3.4-10.8)
[2021-07-03 10:06] LABS: % CD 3 POS. LYMPHOCYTES 55.6 % (57.5-86.2); % CD 4 POS. LYMPHOCYTES 31.6 % (30.8-58.5); % CD 8 POS. LYMPH 24.6 % (12.0-35.5); ABSOLUTE CD 3 389 /uL (622-2402); ABSOLUTE CD 4 HELPER 221 /uL (359-1519); ABSOLUTE CD 8 SUPPRESSOR 172 /uL (109-897); CD4/CD8 RATIO 1.28 (0.92-3.72)
[2021-07-03 10:06] LABS: ANTI-MYELOPEROXIDASE AB < 9.0 U/mL (0.0-9.0)
[2021-07-03 13:11] LABS: ATYPICAL P-ANCA <1:20 titer (Neg:<1:20); CYTOPLASMIC C-ANCA <1:20 titer (Neg:<1:20); PERINUCLEAR P-ANCA <1:20 titer (Neg:<1:20)
== END 2021-07-02 17:30 | disposition home or self-care (01) | DRG 871 ==
LOC: ER 22:21 → MICUSO 06-25 02:35 → EDBEDREQ 06-25 02:37 → EDBEDREQSVC 06-25 02:37 → EDBEDREQTM 06-25 02:37 → EDBEDREQDT 06-25 02:37 → ENRESERV 06-25 10:00 → 5EST 06-25 14:22
PROVIDERS: ADMIT Family Medicine Adult Medicine; ATTEND Family Medicine Adult Medicine
PROC: 02HV33Z Insertion of Infusion Device into Superior Vena Cava, Percutaneous Approach (ICD-10-PCS; principal; 2021-06-25)
PROC: B548ZZA Ultrasonography of Superior Vena Cava, Guidance (ICD-10-PCS; 2021-06-25)
DX: A41.9 Sepsis, unspecified organism (principal); R65.21 Severe sepsis with septic shock; I33.0 Acute and subacute infective endocarditis; I21.4 Non-ST elevation (NSTEMI) myocardial infarction; N17.9 Acute kidney failure, unspecified; E27.40 Unspecified adrenocortical insufficiency; D68.61 Antiphospholipid syndrome; D69.3 Immune thrombocytopenic purpura; E46 Unspecified protein-calorie malnutrition; K52.9 Noninfective gastroenteritis and colitis, unspecified; E87.5 Hyperkalemia; Z20.822 Contact with and (suspected) exposure to COVID-19; T38.0X5A Adverse effect of glucocorticoids and synthetic analogues, initial encounter; N27.1 Small kidney, bilateral; N18.9 Chronic kidney disease, unspecified; K44.9 Diaphragmatic hernia without obstruction or gangrene; I45.10 Unspecified right bundle-branch block; I77.6 Arteritis, unspecified; E11.22 Type 2 diabetes mellitus with diabetic chronic kidney disease; E03.9 Hypothyroidism, unspecified; D72.810 Lymphocytopenia; D69.59 Other secondary thrombocytopenia; E11.65 Type 2 diabetes mellitus with hyperglycemia; I12.9 Hypertensive chronic kidney disease with stage 1 through stage 4 chronic kidney disease, or unspecified chronic kidney disease; E87.6 Hypokalemia; E11.40 Type 2 diabetes mellitus with diabetic neuropathy, unspecified; E86.9 Volume depletion, unspecified; I34.0 Nonrheumatic mitral (valve) insufficiency; D50.9 Iron deficiency anemia, unspecified; E66.9 Obesity, unspecified; Y92.89 Other specified places as the place of occurrence of the external cause; Z79.899 Other long term (current) drug therapy; Z68.28 Body mass index [BMI] 28.0-28.9, adult; R00.0 Tachycardia, unspecified; M32.9 Systemic lupus erythematosus, unspecified; K63.89 Other specified diseases of intestine; Z86.19 Personal history of other infectious and parasitic diseases
CPT/HCPCS: 36415; 36600; 71045; 74176; 74250; 76705; 76770; 76937; 80048; 80053; 80202; 81003; 82085; 82150; 82164; 82375; 82533; 82550; 82553; 82652; 82784; 82805; 82955; 82962; 83036; 83520; 83605; 83735; 83880; 84100; 84145; 84439; 84484; 84550; 85025; 85041; 85379; 85384; 86022; 86038; 86147; 86160; 86225; 86235; 86256; 86332; 86334; 86359; 86360; 86592; 86780; 86880; 87426; 93005; 93306; 99291; C1725; J0360; J1450; J1644; J1650; J1720; J1815; J2060; J2270; J2405; J2543; J2920; J3370; J3480; J3490; J7030; J7040; J7060; J7070; J7512; J8610; Q9963; A4315